=== PATIENT | female | born 1980 | race Caucasian/White ===

== ENCOUNTER 2019-01-21 22:45 | Emergency (ER) | payer MEDICAID ==
[~2019-01-21] VITALS: Ht 157.5 cm; Wt 56.7 kg
[2019-01-21 23:57] LABS: BASOPHILS % (AUTO) 0.5 % (0.0-2.0); EOSINOPHILS % (AUTO) 0.2 % (0.0-6.0); HEMATOCRIT 29 % (33-45); HEMOGLOBIN 9.5 g/dL (11.5-14.8); LYMPHOCYTES # (AUTO) 1.2 /CMM (0.8-4.8); LYMPHOCYTES % (AUTO) 18.8 % (20.0-44.0); MEAN CORPUSCULAR HGB CONC 32 g/dl (31.0-36.0); MEAN CORPUSCULAR VOLUME 77 fL (82-100); MONOCYTES # (AUTO) 0.4 /CMM (0.1-1.30); MONOCYTES % (AUTO) 6.6 % (2.0-12.0); NEUTROPHILS # (AUTO) 4.9 /CMM (1.8-8.9); NEUTROPHILS % (AUTO) 73.9 % (43.0-81.0); PLATELET COUNT (AUTO) 286 /CMM (150-450); RED BLOOD CELL COUNT(AUTO) 3.82 MIL/uL (4.0-5.2); WHITE BLOOD COUNT (AUTO) 6.6 K/uL (4.3-11.0)
[2019-01-22] MEDS ORDERED: IV NS 0.9% 1,000 ML BAG IV ONE
--- NOTE | 2019-01-22 | NUR ---
ADDENDUM: Intravenous End Time Documentation: Normal saline 1 liter (IV-WO) : start time: 0000 AM ; end time: 0100 AM: IV site: LAC # 20 Port #1
[2019-01-22 00:04] LABS: CALCIUM, SERUM 8.1 mg/dL (8.5-10.1); CREATININE 0.8 mg/dL (0.6-1.3); POTASSIUM 4.2 mmol/L (3.5-5.1)
[2019-01-22 00:21] LABS: ALCOHOL, BLOOD < 3 mg/dL (0-0)
[2019-01-22] MEDS ORDERED: LORAZEPAM INJ 2 MG/ML VIAL ONE (00:29)
[2019-01-22] MEDS ORDERED: LORAZEPAM INJ 2 MG/ML VIAL IV ONE (00:30)
[2019-01-22 01:07] VITALS: BP 91/68
== END 2019-01-22 01:14 | disposition home or self-care (01) ==
LOC: ER 22:50
DX: F41.9 Anxiety disorder, unspecified (principal); R42 Dizziness and giddiness; D64.9 Anemia, unspecified
CPT/HCPCS: 36415; 80048; 80307; 84702; 85025; 93005; 96361; 96374; 99284; J2060; J7030; G0480

== ENCOUNTER 2020-09-21 10:39 | Emergency (ER) | payer MEDICAID ==
[~2020-09-21] VITALS: Ht 160 cm; Wt 54.4 kg
[2020-09-21] MEDS ORDERED: CYCLOBENZAPRINE 10 MG TABLET PO ONE (11:00)
[2020-09-21] MEDS ORDERED: KETOROLAC TROMETHAMINE INJ 30 MG/ML VIAL IM ONE (11:00)
[2020-09-21] MEDS ORDERED: KETOROLAC TROMETHAMINE INJ 30 MG/ML VIAL ONE (11:02)
[2020-09-21] MEDS ORDERED: CYCLOBENZAPRINE 10 MG TABLET ONE (11:03)
--- NOTE | 2020-09-21 11:11 | NUR ---
XRAY RECH AT BEDSIDE
--- NOTE | 2020-09-21 11:57 | NUR ---
Patient discharged to home in stable condition. Written and verbal after care instructions given. Patient verbalizes understanding of instruction.
[2020-09-21 11:58] VITALS: BP 112/60
== END 2020-09-21 11:59 | disposition home or self-care (01) ==
LOC: ER 10:42
DX: S20.222A Contusion of left back wall of thorax, initial encounter (principal); W01.0XXA Fall on same level from slipping, tripping and stumbling without subsequent striking against object, initial encounter; Y93.89 Activity, other specified; Y92.091 Bathroom in other non-institutional residence as the place of occurrence of the external cause; Y99.8 Other external cause status
CPT/HCPCS: 71100; 96372; 99283; J1885

== ENCOUNTER 2020-10-07 08:55 | Emergency (ER) | payer MEDICAID ==
[~2020-10-07] VITALS: Ht 157.5 cm; Wt 56.7 kg
[2020-10-07 09:14] VITALS: BP 105/58
== END 2020-10-07 09:57 | disposition home or self-care (01) ==
LOC: ER 08:58
DX: U07.1 COVID-19 (principal); Z86.03 Personal history of neoplasm of uncertain behavior

== ENCOUNTER 2021-10-16 08:13 | Emergency (ER) | payer MEDICAID ==
[~2021-10-16] VITALS: Ht 157.5 cm; Wt 56.7 kg
[2021-10-16 08:28] VITALS: BP 115/78
--- NOTE | 2021-10-16 08:30 | NUR ---
SEEN AND EXAMINED BY .
[2021-10-16] MEDS ORDERED: IBUP-1955 PO (08:41)
--- NOTE | 2021-10-16 08:44 | NUR ---
Patient discharged to home in stable condition. Written and verbal after care instructions given. Patient verbalizes understanding of instruction.
== END 2021-10-16 08:45 | disposition home or self-care (01) ==
LOC: ER 08:25
DX: U07.1 COVID-19 (principal); J02.9 Acute pharyngitis, unspecified

== ENCOUNTER 2023-02-22 12:12 | Emergency (ER) | payer MEDICAID ==
[~2023-02-22] VITALS: Ht 157.5 cm; Wt 56.7 kg
[~2023-02-22 12:12] MED LIST: IBUP-1955 PO
--- NOTE | 2023-02-22 12:38 | NUR ---
20 g RAC IV established. Bloodwork collected and sent to lab. Line flushed, pt tolerated well
[2023-02-22 12:44] LABS: BASOPHILS % (AUTO) 0.3 % (0.0-2.0); EOSINOPHILS % (AUTO) 1.5 % (0.0-6.0); HEMATOCRIT 38 % (33-45); HEMOGLOBIN 12.5 g/dL (11.5-14.8); LYMPHOCYTES # (AUTO) 1.9 K/uL (0.8-4.8); MEAN CORPUSCULAR HGB CONC 33 g/dl (31.0-36.0); MEAN CORPUSCULAR VOLUME 86 fL (82-100); MONOCYTES # (AUTO) 0.3 K/uL (0.1-1.30); NEUTROPHILS # (AUTO) 3.4 K/uL (1.8-8.9); NEUTROPHILS % (AUTO) 59.2 % (43.0-81.0); PLATELET COUNT (AUTO) 273 K/uL (150-450); RED BLOOD CELL COUNT(AUTO) 4.43 MIL/uL (4.0-5.2); WHITE BLOOD COUNT (AUTO) 5.8 K/uL (4.3-11.0)
[2023-02-22 13:00] LABS: CALCIUM, SERUM 9.2 mg/dL (8.5-10.1); CARBON DIOXIDE 30 mmol/L (21-32); CHLORIDE 104 mmol/L (98-107); CREATININE 0.7 mg/dL (0.6-1.3); GLUCOSE 91 mg/dL (74-106); POTASSIUM 3.5 mmol/L (3.5-5.1); SODIUM SERUM 141 mmol/L (136-145); UREA NITROGEN, BLOOD 11 mg/dL (7-18)
[2023-02-22 13:46] VITALS: BP 110/62
== END 2023-02-22 13:47 | disposition home or self-care (01) ==
LOC: ER 12:14
DX: R07.89 Other chest pain (principal); R55 Syncope and collapse; Z79.899 Other long term (current) drug therapy
CPT/HCPCS: 36415; 71045-TC; 80048-TC; 84484-TC; 85025-TC